=== PATIENT | male | born 1965 | race Caucasian/White ===

== ENCOUNTER 2020-07-09 11:19 | Emergency (ER) | payer BC, OTHER ==
[2020-07-09] MEDS ORDERED: LIDOCAINE 1% W/EPI 1:100,000 MDV 50 ML VIAL ONE (11:57)
--- NOTE | 2020-07-09 12:36 | ER ---
Nurse's Notes [facility] Name: Jeremiah Joseph Age: 54 yrs Sex: Male : 1965 Arrival Date: 07/09/2020 Time: 11:19 Bed 2 Private MD: Diagnosis: Cutaneous abscess of back [any part, except buttock] Presentation: 07/09 11:39 Chief complaint: Patient states: abscess to back for a while, is now red and swollen iw and draining. Coronavirus screen: At this time, the client does not indicate any symptoms associated with coronavirus-19. Ebola Screen: Patient negative for fever greater than or equal to 101.5 degrees Fahrenheit, and additional compatible Ebola Virus Disease symptoms Patient denies exposure to infectious person. Patient denies travel to an Ebola-affected area in the 21 days before illness onset. No symptoms or risks identified at this time. Initial Sepsis Screen: Does the patient meet any 2 criteria? No. Patient's initial sepsis screen is negative. Does the patient have a suspected source of infection? No. Patient's initial sepsis screen is negative. Risk Assessment: Do you want to hurt yourself or someone else? Patient reports no desire to harm self or others. Onset of symptoms was June 29, 2020. 11:39 Method Of Arrival: Ambulatory iw 11:39 Acuity: VERONICA 4 iw Historical: - Allergies: 11:42 No Known Allergies; iw - PMHx: 11:42 Seizures; iw - PSHx: 11:42 Appendectomy; brain; iw - Immunization history:: Adult Immunizations. - Social history:: Smoking status: . Screenin:44 Abuse screen: Denies threats or abuse. Denies injuries from another. Nutritional iw screening: No deficits noted. Tuberculosis screening: No symptoms or risk factors identified. Fall Risk None identified. Assessment: 11:42 General: Appears in no apparent distress. Behavior is calm, cooperative. Pain: iw Complains of pain in posterior chest. Neuro: Level of Consciousness is awake, alert, obeys commands, Oriented to place, time, situation, Moves all extremities. Cardiovascular: Patient's skin is warm and dry. Respiratory: Respiratory effort is even, unlabored, Respiratory pattern is regular, symmetrical. Derm: Skin is intact, is healthy with good turgor, Abscess located on thoracic area is golf ball sized, is red, is raised. Musculoskeletal: Range of motion: intact in all extremities. Vital Signs: 11:39 BP 148 / 93; Pulse 83; Resp 16; Temp 97.9; Pulse Ox 100% on R/A; iw ED Course: 11:19 Patient arrived in ED. ag5 11:26 Dillon Caal MD is Attending Physician. kdr 11:31 Shae Barajas, RN is Primary Nurse. iw 11:41 Triage completed. iw 11:42 Arm band placed on. iw 12:18 Patient has correct armband on for positive identification. iw 12:18 Patient did not have IV access during this emergency room visit. iw 12:40 Assist provider with I \T\ D: of an abscess on Set up I\T\D tray. Performed by Dillon Caal MD Wound packed. Dressing with. Administered Medications: No medications were administered Outcome: 12:35 Discharge ordered by . kdr 12:50 Discharged to home ambulatory. iw 12:50 Condition: good 12:50 Discharge instructions given to patient, Instructed on discharge instructions, follow up and referral plans. medication usage, Demonstrated understanding of instructions, follow-up care, medications, Prescriptions given X 3. 12:51 Patient left the ED. iw Signatures: Dillon Caal MD MD kdr Shae Barajas, RN RN iw Stacey Sanders ag5
--- NOTE | 2020-07-09 12:37 | EDPHYS ---
Physician Documentation [facility] Name: Jeremiah Joseph Age: 54 yrs Sex: Male : 1965 Arrival Date: 07/09/2020 Time: 11:19 Bed 2 Private MD: ED Physician Dillon Caal HPI: 07/09 12:57 This 54 yrs old Male presents to ER via Ambulatory with complaints of Boil. kdr 12:57 The patient presents with an abscess of the left scapular area. Description: The kdr affected area is large, confluent, localized, well demarcated, draining, erythematous, fluctuant, hot, pointed, raised, swollen, tense, warm. Onset: The symptoms/episode began/occurred gradually, 2 month(s) ago. Possible cause(s): unknown. Associated signs and symptoms: The patient has no apparent associated signs or symptoms. Modifying factors: the symptoms are alleviated by nothing, the symptoms are aggravated by nothing. Severity of symptoms: At their worst the symptoms were mild, just prior to arrival, in the emergency department the symptoms have improved, mildly. The patient has experienced similar episodes in the past, several times, but today's symptoms are worse. The patient has not recently seen a physician. Historical: - Allergies: 11:42 No Known Allergies; iw - PMHx: 11:42 Seizures; iw - PSHx: 11:42 Appendectomy; brain; iw - Immunization history:: Adult Immunizations. - Social history:: Smoking status: . ROS: 12:57 Constitutional: Negative for fever, chills, and weight loss, Skin: Negative for injury, kdr rash, and discoloration, there is an abscess ot the left upper mid back that is approximately 4 cm in diameter with surrounding erytema and enduration Exam: 12:57 Constitutional: This is a well developed, well nourished patient who is awake, alert, kdr and in no acute distress. Head/Face: Normocephalic, atraumatic. Vital Signs: 11:39 BP 148 / 93; Pulse 83; Resp 16; Temp 97.9; Pulse Ox 100% on R/A; iw Procedures: 12:57 I \T\ D: Incision and drainage was performed for an abscess of the left left scapular kdr area Prepped with Betadine, Anesthetized with ml's 2% Lidocaine with epinephrine. 5 ml's 2% Lidocaine with epinephrine. Incised with #11 blade. Drained large amount purulent fluid. bloody fluid. cottage cheese like Packed with iodoform gauze, Dressing: sterile 4x4 gauze, telfa. MDM: 12:35 Patient medically screened. kdr 12:57 Data reviewed: vital signs, nurses notes, correction records. Counseling: I had a kdr detailed discussion with the patient and/or guardian regarding: the historical points, exam findings, and any diagnostic results supporting the discharge/admit diagnosis, lab results, radiology results, the need for outpatient follow up. Administered Medications: No medications were administered Disposition: 07/09/20 12:35 Discharged to Home. Impression: Cutaneous abscess of back [any part, except buttock]. - Condition is Stable. - Discharge Instructions: Incision and Drainage, Skin Abscess, [id number], Incision and Drainage, Care After. - Prescriptions for Keflex 500 mg Oral Capsule - take 1 capsule by ORAL route every 6 hours for 10 days; 40 capsule. Tramadol 50 mg Oral Tablet - take 1 tablet by ORAL route every 8 hours as needed; 12 tablet. Bactrim DS 800- 160 mg Oral Tablet - take 1 tablet by ORAL route every 12 hours for 10 days; 20 tablet. - Medication Reconciliation Form, Thank You Letter, Antibiotic Education, Prescription Opioid Use form. - Follow up: Private Physician; When: 2 - 3 days; Reason: If symptoms return, Further diagnostic work-up, Recheck today's complaints, Continuance of care, Re-evaluation by your physician. - Problem is an ongoing problem. - Symptoms have improved. Signatures: Dillon Caal MD MD kdr Shae Barajas RN RN iw Corrections: (The following items were deleted from the chart) 12:51 12:35 07/09/2020 12:35 Discharged to Home. Impression: Cutaneous abscess of back [any iw part, except buttock]. Condition is Stable. Forms are Medication Reconciliation Form, Thank You Letter, Antibiotic Education, Prescription Opioid Use. Follow up: Private Physician; When: 2 - 3 days; Reason: If symptoms return, Further diagnostic work-up, Recheck today's complaints, Continuance of care, Re-evaluation by your physician. Problem is an ongoing problem. Symptoms have improved. kdr
[2020-07-09 12:59] VITALS: BP 148/93; TEMP 97.9; O2SAT 100
== END 2020-07-09 12:51 | disposition home or self-care (01) ==
LOC: ER 11:19
PROC: 0J970ZZ Drainage of Back Subcutaneous Tissue and Fascia, Open Approach (ICD-10-PCS; principal; 2020-07-09)
DX: L02.212 Cutaneous abscess of back [any part, except buttock and flank] (principal)
CPT/HCPCS: 99283